=== PATIENT | female | born 1990 | race African-American/Black ===

== ENCOUNTER 2019-08-15 00:22 | Emergency (ER) | payer OTHER ==
[~2019-08-15] VITALS: Ht 162.6 cm; Wt 77.1 kg
[~2019-08-15 00:22] MED LIST: FLEXERIL PO; NORCO 5-325 TA1 EACH PO; PHENERGAN 25 MG25 M1 PO; TIZANIDINE HCL4 MG PO; ULTRAM 50MG TAB50 MG PO
[2019-08-15] MEDS ORDERED: NF (00:50)
[2019-08-15] MEDS ORDERED: VALIUM2 MG PO (01:38)
[2019-08-15 02:01] VITALS: BP 133/88
== END 2019-08-15 02:02 | disposition home or self-care (01) ==
LOC: ER 00:22
DX: H81.10 Benign paroxysmal vertigo, unspecified ear (principal); R03.0 Elevated blood-pressure reading, without diagnosis of hypertension; Z98.890 Other specified postprocedural states; Z88.8 Allergy status to other drugs, medicaments and biological substances